=== PATIENT | male | born 1950 | race Caucasian/White ===

== ENCOUNTER 2019-04-13 06:50 | Day surgery (SDC) | payer OTHER ==
[~2019-04-13] VITALS: Ht 175.3 cm; Wt 87.0 kg
[~2019-04-13 06:50] MED LIST: ATOR80 PO; Aspirin325 MG PO; B Complex #11 EACH PO; CENTRUM SILVER1 EAC4 PO; CLOP75 PO; GLIP10 PO; ISOSORBIDE ER PO; Isosorbide Mono60 MG PO; Janumet 50-1,01 EACH PO; METO25ER PO; NITR.4SL SL; PIOG45 PO; Zestril40 MG PO
--- NOTE | 2019-04-13 10:58 | NUR ---
attempted to deflate R TR band, slight oozing noted. Reinflated.NO bleeding or hematoma noted. VSS> nadn. Pt denies needs., call light within reach.
--- NOTE | 2019-04-13 12:45 | NUR ---
PT TR BAND FULLY DEFLATED. NO BLEEDING OR HEMATOMA NOTED. VSS. NADN. PT DENIES NEEDS, WATCHING TV AT THIS TIME. CALL LIGHT WITHIN REACH.
--- NOTE | 2019-04-13 13:15 | NUR ---
PT AMBULATES TO AND FROM RESTROOM WITHOUT DIFF. R RADIAL REMAINS CLEAR. PT DRESSING SELF WITH MINIMAL ASSISTANCE
--- NOTE | 2019-04-13 13:18 | NUR ---
DOT DRESSING APPLIED WITH SPLINT & SLING. TOLERATES WELL. PT VEBALIZES UNDERSTANDING WRITTEN AND VERBAL ORDERS. PT DC TO HOME VIA FRIEND BY SHAZIA.
== END 2019-04-13 13:33 | disposition home or self-care (01) ==
LOC: MHTC 06:50
DX: T82.855A Stenosis of coronary artery stent, initial encounter (principal); I25.10 Atherosclerotic heart disease of native coronary artery without angina pectoris; I10 Essential (primary) hypertension; E78.5 Hyperlipidemia, unspecified; E11.9 Type 2 diabetes mellitus without complications; Z79.02 Long term (current) use of antithrombotics/antiplatelets; Z79.82 Long term (current) use of aspirin; Z79.899 Other long term (current) drug therapy; Z95.5 Presence of coronary angioplasty implant and graft; Z79.84 Long term (current) use of oral hypoglycemic drugs
CPT/HCPCS: 82947; 93458; 93571; 99152; 99153; C1769; C1887; C1894; J1644; J7030; Q9967

== ENCOUNTER 2019-07-01 06:56 | Day surgery (SDC) | payer OTHER ==
[~2019-07-01] VITALS: Ht 172.7 cm; Wt 82.8 kg
[2019-07-01] MEDS ORDERED: Janumet 50-1,01 EACH (07:36)
== END 2019-07-01 08:52 | disposition home or self-care (01) ==
LOC: ORSCSDS 06:56
PROVIDERS: Surgery
PROC: 0DJD8ZZ Inspection of Lower Intestinal Tract, Via Natural or Artificial Opening Endoscopic (ICD-10-PCS; principal; 2019-07-01 08:00)
DX: Z12.11 Encounter for screening for malignant neoplasm of colon (principal); Z86.010 Personal history of colon polyps; E11.9 Type 2 diabetes mellitus without complications; I25.10 Atherosclerotic heart disease of native coronary artery without angina pectoris; I10 Essential (primary) hypertension; E78.5 Hyperlipidemia, unspecified; I25.2 Old myocardial infarction; Z79.899 Other long term (current) drug therapy; Z79.82 Long term (current) use of aspirin
CPT/HCPCS: 82947; J0330; J0461; J1644; J2250; J2405; J2704; J3010; J7120

== ENCOUNTER → 2019-10-09 | Outpatient (CLI) | payer OTHER ==
[~2019-10-09] MED LIST changes: +Janumet 50-1,01 EACH; +PIOG15 PO; +TORSE20 PO
== END | disposition home or self-care (01) ==
LOC: LAB SHORT 09:45 → LAB 09:45 → LAB FUT 09-29 18:30
DX: R13.10 Dysphagia, unspecified (principal)
CPT/HCPCS: 87338

== ENCOUNTER 2019-12-14 10:30 | Day surgery (SDC) | payer OTHER ==
[~2019-12-14] VITALS: Ht 172.7 cm; Wt 78.9 kg
[~2019-12-14 10:30] MED LIST changes: +Actos45 MG PO; +ESCI10 PO; +GLIP10ER PO; +LISI5 PO; +OMEPRAZOLE20 MG PO
[2019-12-14] MEDS ORDERED: METF500 PO (11:03)
[2019-12-14] MEDS ORDERED: METO25ER (11:03)
== END 2019-12-14 12:10 | disposition home or self-care (01) ==
LOC: ORSCSDS 10:30
PROVIDERS: Internal Medicine Gastroenterology
PROC: 0D757ZZ Dilation of Esophagus, Via Natural or Artificial Opening (ICD-10-PCS; principal; 2019-12-14 14:00)
PROC: 0DB38ZX Excision of Lower Esophagus, Via Natural or Artificial Opening Endoscopic, Diagnostic (ICD-10-PCS; principal; 2019-12-14 14:00)
PROC: 0DB68ZX Excision of Stomach, Via Natural or Artificial Opening Endoscopic, Diagnostic (ICD-10-PCS; principal; 2019-12-14 14:00)
PROC: 0DB98ZX Excision of Duodenum, Via Natural or Artificial Opening Endoscopic, Diagnostic (ICD-10-PCS; principal; 2019-12-14 14:00)
PROC: 0DB18ZX Excision of Upper Esophagus, Via Natural or Artificial Opening Endoscopic, Diagnostic (ICD-10-PCS; principal; 2019-12-14 14:00)
DX: R11.2 Nausea with vomiting, unspecified (principal); E11.9 Type 2 diabetes mellitus without complications; I25.10 Atherosclerotic heart disease of native coronary artery without angina pectoris; R13.10 Dysphagia, unspecified; Z79.84 Long term (current) use of oral hypoglycemic drugs; Z79.899 Other long term (current) drug therapy
CPT/HCPCS: 82947; 88305; 88342; J2704; J7120

== ENCOUNTER 2019-12-20 08:15 | Day surgery (SDC) | payer OTHER ==
[~2019-12-20] VITALS: Ht 172.7 cm; Wt 78.9 kg
[~2019-12-20 08:15] MED LIST changes: +METF500 PO; +METO25ER
[2019-12-20] MEDS ORDERED: LISI20 PO (08:30)
--- NOTE | 2019-12-20 08:39 | NUR ---
History, Chart, Medications and Allergies reviewed before start of procedure. Patient confirms NPO status and agrees with scheduled surgery.
[2019-12-20] MEDS ORDERED: IBUP800 PO (08:52)
[2019-12-20] MEDS ORDERED: CYAN500 PO (08:53)
--- NOTE | 2019-12-20 11:12 | NUR ---
NOZIN NASAL OUTSIDE REPAIRER SPECIAL X3 AMPULES USED TO NARES BILAT PER ORDER.
--- NOTE | 2019-12-20 11:13 | NUR ---
KNEE HIGH BREE HOSE WITH CALF PAS APPLIED TO RLE.
--- NOTE | 2019-12-20 15:20 | NUR ---
pt transported to room via own bed, a/o x 4, pleasant/cooperative, no sensation/movement ble r/t spinal anesthesia. pt denies pain, denies n/v, provided with PO fluids/snack. pt oriented to call [facility], [facility]
--- NOTE | 2019-12-20 17:47 | NUR ---
pt remains a/o x 4, pleasant/cooperative, denies pain, still has some numbness in BLE, is able to wiggle toes minimally, good capillary refill to toes, strong pedal pulses. pt denies n/v, tolerating PO intake.
--- NOTE | 2019-12-20 18:03 | NUR ---
DR KRAMER ROUNDING ON PT
--- NOTE | 2019-12-20 20:38 | NUR ---
CBG 403. HOSPITALIST CONSULTED FOR DIABETES MANAGEMENT. SPOKE WITH DR. WHITEHEAD REGARDING ELEVATED BLOOD SUGAR. NO VERBAL ORDERS AT THIS TIME. HOSPITALIST IN TO SEE PATIENT.
--- NOTE | 2019-12-21 01:34 | NUR ---
ASSUMED CARE FROM MARIAJOSE EDMONDSON. REPORT RECEIVED. PATIENT IS RESTING IN BED WITH EYES CLOSED. CALL LIGHT IN REACH. WILL MONITOR PATIENT FOR ANY NEEDS.
--- NOTE | 2019-12-21 04:27 | NUR ---
SHIFT SUMMARY NO CHANGES SINCE RECEIVING HAND OFF. PATIENT RESTING IN BED, DENIES PAIN AND NAUSEA. PATIENT HAS VOIDED. UP TO RESTROOM WITH FWW, GB. [id number]. VSS. CBG ELEVATED AT NIGHTTIME CHECKS. NEW ORDERS FOR LANTUS GIVEN. PATIENT CALLING APPROPRIATLY
[2019-12-21 04:53] LABS: BASOPHILS ABSOLUTE AUTO 0.01 K/mm3 (0.00-0.23); BASOPHILS PERCENT AUTO 0 % (0-2); EOSINOPHILS PERCENT AUTO 0 % (0-6); Hematocrit 29.1 % (37.0-53.0); Hemoglobin 9.4 g/dL (13.5-17.5); IMMATURE GRAN ABSOLUTE AUTO 0.04 K/mm3 (0.00-0.10); IMMATURE GRAN PERCENT AUTO 0 % (0-1); LYMPHOCYTES ABSOLUTE AUTO 1.16 K/mm3 (0.84-5.20); LYMPHOCYTES PERCENT AUTO 10 % (21-46); MONOCYTES ABSOLUTE AUTO 0.56 K/mm3 (0.16-1.47); MONOCYTES PERCENT AUTO 5 % (4-13); Mean Corpuscular HGB 30.9 pg (26.0-34.0); Mean Corpuscular HGB Conc 32.3 g/dL (31.5-36.5); Mean Corpuscular Volume 96 fL (80-100); Mean Platelet Volume 12.9 fL (9.1-12.4); NEUTROPHILS PERCENT AUTO 85 % (41-73); Platelet Count 239 K/mm3 (150-400); RDW Coefficient Variation 12.9 % (11.7-14.2); RDW Standard Deviation 44.9 fL (35.1-46.3); Red Blood Cell Count 3.04 M/mm3 (4.30-5.90); White Blood Cell Count 11.87 K/mm3 (4.00-11.30)
[2019-12-21 05:13] LABS: Anion Gap 9 mmol/L (6-16); Blood Urea Nitrogen 25 mg/dL (8-24); Bun/Creatinine Ratio 20.3 (12.0-20.0); CO2, Blood 22 mmol/L (21-32); Chloride, Blood 106 mmol/L (98-108); Creatinine, Blood 1.23 mg/dL (0.60-1.20); Glomerular Filtration Rate >60 (60-); Glucose, Blood 289 mg/dL (70-99); Magnesium, Blood 1.6 mg/dL (1.6-2.4); Potassium, Blood 4.5 mmol/L (3.5-5.5); Sodium, Blood 137 mmol/L (136-145)
--- NOTE | 2019-12-21 09:47 | NUR ---
12/21/19 0947 Loida Whatley VERIFICATIONS: EDIT CHART.
--- NOTE | 2019-12-21 11:14 | NUR ---
Upon receiving an admit referral, I visit the patient. Patient openly shares about his recent surgery, his family, his muslim and his move to [facility]. I listen empathically and provide companionship and prayer. Patient responds well and voices appreciation for the visit.
--- NOTE | 2019-12-21 13:21 | NUR ---
PERMISSION FOR CARE I, RICCO HOLGUIN [facility] [employer], RECIEVED PERMISSION FROM THIS PATIENT ON 12/21/2019 TO CARE FOR HIM ON 12/21/2019.
--- NOTE | 2019-12-21 18:18 | NUR ---
SHIFT SUMMARY PT FINALLY MAKING PROGRESS ON BLOOD SUGARS. CLEARED FROM THERAPY AND IS SAFE FOR D/C HOME ONCE BLOOD SUGARS ARE CONTROLLED. PT HOPEFUL TO DC TOMORROW AM. PAIN WELL CONTROLLED, TOLERATING DIET, VOIDING WELL.
[2019-12-22 04:49] LABS: BASOPHILS ABSOLUTE AUTO 0.05 K/mm3 (0.00-0.23); BASOPHILS PERCENT AUTO 0 % (0-2); EOSINOPHILS ABSOLUTE AUTO 0.44 K/mm3 (0.00-0.68); EOSINOPHILS PERCENT AUTO 3 % (0-6); Hematocrit 28.2 % (37.0-53.0); IMMATURE GRAN ABSOLUTE AUTO 0.07 K/mm3 (0.00-0.10); IMMATURE GRAN PERCENT AUTO 1 % (0-1); LYMPHOCYTES ABSOLUTE AUTO 3.44 K/mm3 (0.84-5.20); LYMPHOCYTES PERCENT AUTO 25 % (21-46); MONOCYTES ABSOLUTE AUTO 0.92 K/mm3 (0.16-1.47); MONOCYTES PERCENT AUTO 7 % (4-13); Mean Corpuscular HGB 30.7 pg (26.0-34.0); Mean Corpuscular HGB Conc 31.9 g/dL (31.5-36.5); Mean Corpuscular Volume 96 fL (80-100); Mean Platelet Volume 12.5 fL (9.1-12.4); NEUTROPHILS ABSOLUTE AUTO 8.72 K/mm3 (1.96-9.15); NEUTROPHILS PERCENT AUTO 64 % (41-73); Platelet Count 240 K/mm3 (150-400); RDW Coefficient Variation 13.1 % (11.7-14.2); RDW Standard Deviation 46.3 fL (35.1-46.3); Red Blood Cell Count 2.93 M/mm3 (4.30-5.90); White Blood Cell Count 13.64 K/mm3 (4.00-11.30)
--- NOTE | 2019-12-22 04:55 | NUR ---
SHIFT SUMMARY HAS RESTED WELL AFTER AMBULATING IN THE ROOM AND USING THE BATHROOM. GOOD URINE OUTPUT NOTED. PAIN HAS BEEN WELL MANAGED WITH TORADOL AND TYLENOL. DENIES FURTHER NEEDS OR WANTS AT THIS TIME. SAFETY MEAURES IN PLACE. WILL GIVE HAND OFF TO ONCOMING SHIFT USING SBAR.
[2019-12-22 05:07] LABS: Bun/Creatinine Ratio 24.1 (12.0-20.0); Creatinine, Blood 1.33 mg/dL (0.60-1.20)
[2019-12-22] MEDS ORDERED: BASAGLAR K100 UNIT/1 SC (10:39)
[2019-12-22] MEDS ORDERED: OXYC5 PO (10:42)
--- NOTE | 2019-12-22 11:11 | NUR ---
discharge instructions reviewed with patient and patients questions answered. pt waiting for daughter in law to arrive to take him home
--- NOTE | 2019-12-22 15:05 | NUR ---
DISCHARGED TO HOME
== END 2019-12-22 15:05 | disposition home or self-care (01) ==
LOC: SURS 08:15 → ORSCMMR 08:15 → ORD 11:15 → SURS 15:16 → ORSCMMR 12-22 15:05
PROVIDERS: Family Medicine; Orthopaedic Surgery
PROC: 0SRD0J9 Replacement of Left Knee Joint with Synthetic Substitute, Cemented, Open Approach (ICD-10-PCS; principal; 2019-12-20 11:15)
DX: M17.12 Unilateral primary osteoarthritis, left knee (principal); I12.9 Hypertensive chronic kidney disease with stage 1 through stage 4 chronic kidney disease, or unspecified chronic kidney disease; E11.22 Type 2 diabetes mellitus with diabetic chronic kidney disease; N18.9 Chronic kidney disease, unspecified; I25.10 Atherosclerotic heart disease of native coronary artery without angina pectoris; Z79.899 Other long term (current) drug therapy
CPT/HCPCS: 36415; 73560-LT; 80048; 82947; 83036; 83735; 85025; 88300; 97110; 97116; 97162; C1713; C1776; J0171; J0690; J0735; J1100; J1815; J1885; J2250; J2405; J2704; J2795; J7120

== ENCOUNTER → 2021-05-09 | Outpatient (CLI) | payer OTHER ==
[~2021-05-09] MED LIST changes: +ASPI81CH PO; +BASAGLAR K100 UNIT/1 SC; +BRILINTA90 M1 PO; +CYAN500 PO; +IBUP800 PO; +JARDIANCE25 MG PO; +KETO.5OPSO LEFTEYE; +LISI20 PO; -METO25ER; +OXYC5 PO; +PRED PH-MOXI-BRO5 M1 OP; +REGLAN10 M2 PO
[2021-05-09 13:23] LABS: BASOPHILS ABSOLUTE AUTO 0.06 K/mm3 (0.00-0.23); BASOPHILS PERCENT AUTO 1 % (0-2); EOSINOPHILS ABSOLUTE AUTO 0.35 K/mm3 (0.00-0.68); EOSINOPHILS PERCENT AUTO 3 % (0-6); Hematocrit 35.3 % (37.0-53.0); Hemoglobin 11.2 g/dL (13.5-17.5); IMMATURE GRAN ABSOLUTE AUTO 0.04 K/mm3 (0.00-0.10); IMMATURE GRAN PERCENT AUTO 0 % (0-1); LYMPHOCYTES ABSOLUTE AUTO 5.16 K/mm3 (0.84-5.20); LYMPHOCYTES PERCENT AUTO 50 % (21-46); MONOCYTES ABSOLUTE AUTO 0.72 K/mm3 (0.16-1.47); MONOCYTES PERCENT AUTO 7 % (4-13); Mean Corpuscular HGB 30.8 pg (26.0-34.0); Mean Corpuscular HGB Conc 31.7 g/dL (31.5-36.5); Mean Corpuscular Volume 97 fL (80-100); Mean Platelet Volume 12.3 fL (9.1-12.4); NEUTROPHILS ABSOLUTE AUTO 3.97 K/mm3 (1.96-9.15); NEUTROPHILS PERCENT AUTO 39 % (41-73); Platelet Count 225 K/mm3 (150-400); RDW Coefficient Variation 14.1 % (11.7-14.2); RDW Standard Deviation 49.9 fL (35.1-46.3); Red Blood Cell Count 3.64 M/mm3 (4.30-5.90)
[2021-05-09 13:26] LABS: Hematocrit 35.2 % (37.0-53.0); Hemoglobin 11.1 g/dL (13.5-17.5); Mean Corpuscular HGB 30.7 pg (26.0-34.0); Mean Corpuscular HGB Conc 31.5 g/dL (31.5-36.5); Mean Corpuscular Volume 97 fL (80-100); Mean Platelet Volume 12.4 fL (9.1-12.4); Platelet Count 225 K/mm3 (150-400); RDW Standard Deviation 49.9 fL (35.1-46.3); Red Blood Cell Count 3.62 M/mm3 (4.30-5.90)
[2021-05-09 13:36] LABS: International Normalized Ratio 1.06; Prothrombin Time Results 11.4 Sec (9.7-11.5)
[2021-05-09 14:01] LABS: BASOPHILS PERCENT MAN 0 % (0-2); EOSINOPHILS PERCENT MAN 3 % (0-6); LYMPHOCYTES PERCENT MAN 51 % (21-46); MONOCYTES PERCENT MAN 5 % (4-13); SEG NEUTROPHILS PERCENT MAN 41 % (41-73); TOTAL CELLS COUNTED 100
[2021-05-09 14:16] LABS: Anion Gap 4 mmol/L (6-16); Blood Urea Nitrogen 24 mg/dL (8-24); Bun/Creatinine Ratio 20.9 (12.0-20.0); CO2, Blood 26 mmol/L (21-32); Chloride, Blood 111 mmol/L (98-108); Creatinine, Blood 1.15 mg/dL (0.60-1.20); Glomerular Filtration Rate >60 (60-); Glucose, Blood 205 mg/dL (70-99); Potassium, Blood 4.1 mmol/L (3.5-5.5); Sodium, Blood 141 mmol/L (136-145)
== END | disposition home or self-care (01) ==
LOC: LAB SHORT 11:05 → LAB 11:05
PROVIDERS: Internal Medicine Cardiovascular Disease; Orthopaedic Surgery
DX: Z01.818 Encounter for other preprocedural examination (principal); R07.9 Chest pain, unspecified; E11.9 Type 2 diabetes mellitus without complications
CPT/HCPCS: 36415; 80048; 83036; 85007; 85025; 85027; 85610

== ENCOUNTER 2021-05-10 06:36 | Day surgery (SDC) | payer OTHER ==
[~2021-05-10] VITALS: Ht 172.7 cm; Wt 84.0 kg
[~2021-05-10 06:36] MED LIST changes: -ASPI81CH PO; -BRILINTA90 M1 PO
[2021-05-10] MEDS ORDERED: ASPI81CH PO (07:03)
--- NOTE | 2021-05-10 09:15 | NUR ---
TO RECOVERY ROOM VIA RECLINER. PT AWAKE AND ALERT. TR BAND INTACT WITH 14 CC AIR. PULSES PRESENT.
--- NOTE | 2021-05-10 09:28 | NUR ---
DR. MONROY HERE TO DISCUSS PROCEDURE PATIENT.
[2021-05-10] MEDS ORDERED: BRILINTA90 M1 PO (09:32)
--- NOTE | 2021-05-10 10:55 | NUR ---
[facility] RETURNED CALL. PT COST OF [place] IS $480/MONTH. PT STATES HE CAN'T AFFORD IT. SPOKE WITH DR. MONROY. TO CONTINUE [place].
[2021-05-10] MEDS ORDERED: CLOP75 PO (10:56)
--- NOTE | 2021-05-10 12:06 | NUR ---
4CC OF AIR RELEASED FROM TR BAND. NO BLEEDING OR HEMATOMA NOTED. VSS. NADN.
--- NOTE | 2021-05-10 12:23 | NUR ---
AIR FULLY DEFLATED FROM TR BAND. TOLERATING WELL. NO BLEEDING OR HEMATOMA NOTED. VSS. NADN. CALL LIGHT WITHIN REACH. PT EATING LUNCH AT THIS TIME
--- NOTE | 2021-05-10 13:08 | NUR ---
HEMATOMA NOTED DISTAL R RADIAL TR BAND. TR BAND REMOVED. NO BLEEDING NOTED. MANUAL PRESSURE HELD TO REDUCE HEMATOMA.
--- NOTE | 2021-05-10 13:11 | NUR ---
NEEL WITH PRESSURE DSG APPLIED TO R WRIST. TOLERATING WELL. YARIEL. SHIRLEY.
--- NOTE | 2021-05-10 13:30 | NUR ---
DISCHARGE INSTRUCTIONS GIVEN WITH VERBAL AND WRITTEN UNDERSTANDING.
--- NOTE | 2021-05-10 13:31 | NUR ---
COBAN AND PRESSURE DSG REMOVED. TOLERATED WELL. NO LONGER HEMATOMA OR BLEEDING NOTED. WILL CONTINUE TO [facility].
--- NOTE | 2021-05-10 13:45 | NUR ---
AMBULATED TO BATHROOM. TOLERATED WELL. DRESSING FOR DISCHARGE.
--- NOTE | 2021-05-10 15:12 | NUR ---
IV REMOVED INTACT. 2X2,COBAN AND MANUAL PRESSURE APPLIED. RIGHT RADIAL SITE SOFT NONTENDER WITH BRUISING.
--- NOTE | 2021-05-10 15:47 | NUR ---
transfer of care given to Juliana Gil RN.
--- NOTE | 2021-05-10 15:51 | NUR ---
PT RIGHT ARM PLACED IN SLING. WAITING FOR RIDE
--- NOTE | 2021-05-10 16:22 | NUR ---
PT SON HERE, PT WHEELED OUT TO PRIVATE VEHICLE WITH ONE STAFF.
== END 2021-05-10 16:20 | disposition home or self-care (01) ==
LOC: MHTC 06:36
DX: I25.118 Atherosclerotic heart disease of native coronary artery with other forms of angina pectoris (principal); E78.5 Hyperlipidemia, unspecified; R00.1 Bradycardia, unspecified; I13.10 Hypertensive heart and chronic kidney disease without heart failure, with stage 1 through stage 4 chronic kidney disease, or unspecified chronic kidney disease; N18.9 Chronic kidney disease, unspecified; T82.855A Stenosis of coronary artery stent, initial encounter; Y84.8 Other medical procedures as the cause of abnormal reaction of the patient, or of later complication, without mention of misadventure at the time of the procedure
CPT/HCPCS: 76937; 85347; 93454; 93571; 93572; 99152; 99153; A9270; C1725; C1769; C1874; C1887; C1894; C9600; J1644; J2250; J3010; J7030; J7040; J7050; Q9967

== ENCOUNTER → 2021-05-28 | Outpatient (CLI) | payer OTHER ==
[~2021-05-28] MED LIST changes: +ASPI81CH PO; +BRILINTA90 M1 PO
== END | disposition home or self-care (01) ==
LOC: LAB SHORT 16:22 → LAB 16:22
DX: T14.8XXA Other injury of unspecified body region, initial encounter (principal)
CPT/HCPCS: 87070; 87075; 87205

== ENCOUNTER 2021-06-14 08:21 | Day surgery (SDC) | payer OTHER ==
[~2021-06-14] VITALS: Ht 172.7 cm; Wt 82.9 kg
--- NOTE | 2021-06-14 08:52 | NUR ---
06/14/21 0852 Larry Ortiz TETRACAINE IN AT [phone] PLEDGET IN AT [phone]
== END 2021-06-14 10:18 | disposition home or self-care (01) ==
LOC: ORSCSDS 08:21
PROVIDERS: Ophthalmology
PROC: 08RK3JZ Replacement of Left Lens with Synthetic Substitute, Percutaneous Approach (ICD-10-PCS; principal; 2021-06-14 09:45)
DX: H25.12 Age-related nuclear cataract, left eye (principal); I10 Essential (primary) hypertension; I25.10 Atherosclerotic heart disease of native coronary artery without angina pectoris; N18.9 Chronic kidney disease, unspecified; E78.5 Hyperlipidemia, unspecified; I50.9 Heart failure, unspecified; Z79.02 Long term (current) use of antithrombotics/antiplatelets; Z79.899 Other long term (current) drug therapy
CPT/HCPCS: 82947; J2001; J2250; J3010; J3301; J7040; V2632

== ENCOUNTER 2021-09-17 15:18 | Observation (INO) | payer OTHER ==
[~2021-09-17] VITALS: Ht 172.7 cm; Wt 89.1 kg
[~2021-09-17 15:18] MED LIST changes: -ASPI81CH PO; +Aspir 8181 MG PO
[2021-09-17 16:01] LABS: BASOPHILS ABSOLUTE AUTO 0.04 K/mm3 (0.00-0.23); BASOPHILS PERCENT AUTO 0 % (0-2); EOSINOPHILS ABSOLUTE AUTO 0.27 K/mm3 (0.00-0.68); EOSINOPHILS PERCENT AUTO 3 % (0-6); Hematocrit 30.4 % (37.0-53.0); Hemoglobin 9.9 g/dL (13.5-17.5); IMMATURE GRAN ABSOLUTE AUTO 0.02 K/mm3 (0.00-0.10); IMMATURE GRAN PERCENT AUTO 0 % (0-1); LYMPHOCYTES ABSOLUTE AUTO 4.47 K/mm3 (0.84-5.20); LYMPHOCYTES PERCENT AUTO 49 % (21-46); MONOCYTES ABSOLUTE AUTO 0.67 K/mm3 (0.16-1.47); MONOCYTES PERCENT AUTO 7 % (4-13); Mean Corpuscular HGB 32.8 pg (26.0-34.0); Mean Corpuscular HGB Conc 32.6 g/dL (31.5-36.5); Mean Corpuscular Volume 101 fL (80-100); Mean Platelet Volume 11.9 fL (9.1-12.4); NEUTROPHILS ABSOLUTE AUTO 3.71 K/mm3 (1.96-9.15); NEUTROPHILS PERCENT AUTO 41 % (41-73); Platelet Count 224 K/mm3 (150-400); RDW Coefficient Variation 15.5 % (11.7-14.2); RDW Standard Deviation 55.5 fL (35.1-46.3); Red Blood Cell Count 3.02 M/mm3 (4.30-5.90); White Blood Cell Count 9.18 K/mm3 (4.00-11.30)
[2021-09-17 16:31] LABS: Alanine Aminotransfer (ALT/SGP 16 U/L (12-78); Albumin, Blood 3.3 g/dL (3.4-5.0); Albumin/Globulin Ratio 0.9 (0.8-1.8); Alk Phos 74 U/L (50-136); Anion Gap 6 mmol/L (6-16); Aspartate Aminotrans (AST/SGOT 18 U/L (12-37); Bilirubin, Total 0.4 mg/dL (0.1-1.0); Blood Urea Nitrogen 34 mg/dL (8-24); CO2, Blood 25 mmol/L (21-32); Calcium, Blood 8.8 mg/dL (8.5-10.1); Chloride, Blood 106 mmol/L (98-108); Creatinine, Blood 1.26 mg/dL (0.60-1.20); Globulin, Blood 3.7 g/dL (2.2-4.0); Glomerular Filtration Rate 56 (60-); Glucose, Blood 220 mg/dL (70-99); Sodium, Blood 137 mmol/L (136-145)
[2021-09-17 16:39] LABS: Troponin I <0.015 ng/mL (0.000-0.040)
[2021-09-17] MEDS ORDERED: PIOGLITAZONE HC45 MG PO (18:28)
[2021-09-17] MEDS ORDERED: METFORMIN HCL500 M3 PO (18:28)
[2021-09-17] MEDS ORDERED: PLAVIX75 MG PO (18:28)
[2021-09-17 19:04] LABS: International Normalized Ratio 1.06; Prothrombin Time Results 11.1 Sec (9.7-11.5)
[2021-09-18 03:38] LABS: BASOPHILS ABSOLUTE AUTO 0.05 K/mm3 (0.00-0.23); BASOPHILS PERCENT AUTO 1 % (0-2); EOSINOPHILS ABSOLUTE AUTO 0.42 K/mm3 (0.00-0.68); EOSINOPHILS PERCENT AUTO 5 % (0-6); Hematocrit 30.2 % (37.0-53.0); Hemoglobin 9.9 g/dL (13.5-17.5); IMMATURE GRAN ABSOLUTE AUTO 0.04 K/mm3 (0.00-0.10); IMMATURE GRAN PERCENT AUTO 1 % (0-1); LYMPHOCYTES ABSOLUTE AUTO 4.13 K/mm3 (0.84-5.20); LYMPHOCYTES PERCENT AUTO 50 % (21-46); MONOCYTES PERCENT AUTO 9 % (4-13); Mean Corpuscular HGB 32.9 pg (26.0-34.0); Mean Corpuscular HGB Conc 32.8 g/dL (31.5-36.5); Mean Corpuscular Volume 100 fL (80-100); Mean Platelet Volume 12.2 fL (9.1-12.4); NEUTROPHILS ABSOLUTE AUTO 2.89 K/mm3 (1.96-9.15); NEUTROPHILS PERCENT AUTO 35 % (41-73); Platelet Count 214 K/mm3 (150-400); RDW Coefficient Variation 15.5 % (11.7-14.2); RDW Standard Deviation 55.8 fL (35.1-46.3); Red Blood Cell Count 3.01 M/mm3 (4.30-5.90); White Blood Cell Count 8.23 K/mm3 (4.00-11.30)
[2021-09-18 03:59] LABS: Anion Gap 6 mmol/L (6-16); Blood Urea Nitrogen 27 mg/dL (8-24); CHOL/HDL RATIO 2.8; CO2, Blood 24 mmol/L (21-32); Calcium, Blood 8.5 mg/dL (8.5-10.1); Chloride, Blood 110 mmol/L (98-108); Cholesterol 122 mg/dL (50-200); Creatinine, Blood 1.08 mg/dL (0.60-1.20); Glomerular Filtration Rate >60 (60-); Glucose, Blood 172 mg/dL (70-99); HDL Cholesterol 43 mg/dL (>39); LDL/HDL RATIO 1.4; Low Density Lipoprotein Chol 62 mg/dL (0-110); Potassium, Blood 3.9 mmol/L (3.5-5.5); Sodium, Blood 140 mmol/L (136-145); Triglycerides 85 mg/dL (30-160); Very Low Density Lipoprot Chol 17 mg/dL (6-32)
--- NOTE | 2021-09-18 13:52 | NUR ---
SUMMARY/DISCHARGE PT DISCHARGED TO HOME, PT VERBALIZED UNDERSTANDING OF DISCHARGE INSTRUCTIONS REGARDING MEDS AND FOLLOW UP, PT TAKEN OUT SAFELY VIA WHEELCHAIR
== END 2021-09-18 13:47 | disposition home or self-care (01) ==
LOC: ER 15:18 → MEDS 15:19
PROVIDERS: Emergency Medicine; Physician Assistant; ADMIT Internal Medicine
DX: R07.89 Other chest pain (principal); I25.10 Atherosclerotic heart disease of native coronary artery without angina pectoris; E78.5 Hyperlipidemia, unspecified; I12.9 Hypertensive chronic kidney disease with stage 1 through stage 4 chronic kidney disease, or unspecified chronic kidney disease; E11.22 Type 2 diabetes mellitus with diabetic chronic kidney disease; N18.9 Chronic kidney disease, unspecified; K21.9 Gastro-esophageal reflux disease without esophagitis; I25.2 Old myocardial infarction; F32.A Depression, unspecified; Z95.5 Presence of coronary angioplasty implant and graft; Z96.652 Presence of left artificial knee joint; Z79.82 Long term (current) use of aspirin; Z79.02 Long term (current) use of antithrombotics/antiplatelets
CPT/HCPCS: 36415; 71046; 71260; 80048; 80053; 80061; 82947; 84484; 85025; 85379; 85610; 85730; 93005; 93010; 96374; 96375; 96376; 99285-25; A9270; G0378; J1644; J1885; J2270; J7030; Q9967

== ENCOUNTER 2023-09-29 07:24 | Day surgery (SDC) | payer OTHER ==
[2023-09-29] VITALS (9 sets, daily range): BP systolic 118–128; BP diastolic 58–78
[~2023-09-29] VITALS: Ht 172.7 cm; Wt 92.0 kg
[~2023-09-29 07:24] MED LIST changes: +ESCI10; +EUTHYROX25 MC1 PO; +Isosorbide Mono30 MG PO; +METFORMIN HCL500 M3 PO; +METO50ER PO; +METTREX2.5 PO; +ONDA4 PO; +PIOG30 PO; +PIOGLITAZONE HC45 MG PO; +PLAVIX75 MG PO; +Primidone50 MG PO; +SEMGLEE (Y100 UNIT/2 SQ; +TRADJENTA5 MG PO
--- NOTE | 2023-09-29 09:01 | NUR ---
PATIENT RETURNED FROM THE ACCOUNT SUPPORT REP VIA RECLINER, PLACED ON THE MONITOR AND CALL LIGHT IN REACH. VVS. TR BAND IN PLACE WITH 14 ML OF AIR IN THE BAND. RIGHT RADIAL SITE WITHOUT HEMATOMA, NO BLEEDING. RECLINED BACK, NO PAIN NOTED FROM THE PATIENT.
--- NOTE | 2023-09-29 10:44 | NUR ---
2cc REMOVED FROM TR BAND. NO BLEEDING NOTED. SITE SOFT AND NON-TENDER PER PT.
--- NOTE | 2023-09-29 10:53 | NUR ---
2cc REMOVED FROM TR BAND. SITE SOFT AND NON-TENDER. NO BLEEDING NOTED.
--- NOTE | 2023-09-29 11:07 | NUR ---
2cc REMOVED FROM TR BAND. SITE SOFT AND NON-TENDER. NO BLEEDING NOTED.
--- NOTE | 2023-09-29 11:13 | NUR ---
2cc REMOVED FROM TR BAND. NO BLEEDING NOTED. SITE SOFT AND NON-TENDER PER PT.
--- NOTE | 2023-09-29 11:19 | NUR ---
TR BAND FULLY DEFLATED. NO BLEEDING. SITE SOFT AND NON-TENDER.
--- NOTE | 2023-09-29 12:19 | NUR ---
PIV REMOVED. CATH TIP INTACT. PRESSURE DRESSING APPLIED. VSS PATIENT UP OFF THE MONITOR AND DRESSED. REVEIWED DISCHARGE INSTRUCTIONS AND ALL QUESTIONS ANSWERED. PATIENT TR BAND OFF AND RIGHT RADIAL SITE CLEANED AND CLOTH DOT PLACED. PATIENT CALLED DRIVEER AND THEY WILL BE AN HOUR BEFORE THEY ARRIVE. PATIENT IS WAITING IN RECLINER BUT OFF MONITOR ADN FULLY DRESSED WAITING FOR RELIABILITY TECHNICIANS.
== END 2023-09-29 13:00 | disposition home or self-care (01) ==
LOC: MHTC 07:24
DX: I25.118 Atherosclerotic heart disease of native coronary artery with other forms of angina pectoris (principal); I12.9 Hypertensive chronic kidney disease with stage 1 through stage 4 chronic kidney disease, or unspecified chronic kidney disease; N18.9 Chronic kidney disease, unspecified; E78.5 Hyperlipidemia, unspecified; Z79.02 Long term (current) use of antithrombotics/antiplatelets; Z79.82 Long term (current) use of aspirin; Z79.84 Long term (current) use of oral hypoglycemic drugs; Z79.899 Other long term (current) drug therapy
CPT/HCPCS: 76937; 85347; 93454; 93571; 99152; 99153; C1769; C1887; C1894; J1644; J2250; J3010; J7030; J7050; Q9967

== ENCOUNTER → 2023-10-10 | Outpatient (CLI) | payer OTHER ==
[2023-10-10 15:33] LABS: Source, Urine Clean Catch
[2023-10-10 17:23] LABS: Appearance, Urine Clear (Clear); Bilirubin, Urine Neg (Neg); Blood, Urine 1+ (Neg); Glucose Qualitative, Urine 4+ (Neg); Ketones, Urine Neg (Neg); Leukocyte Esterase, Urine Neg (Neg); Nitrite, Urine Neg (Neg); Protein, Urine Neg (Neg); Specific Gravity, Urine 1.015 (1.003-1.022); Urobilinogen, Urine NORM (Normal)
[2023-10-10 17:37] LABS: Color, Urine Pale Yellow (P-Yellow)
[2023-10-10 17:41] LABS: Bacteria Rare /hpf; Red Blood Cells, Urine 0-2 /hpf (0-2); Squamous Epithelial Cells Rare /hpf (Few); White Blood Cells, Urine 0-2 /hpf (0-5)
== END ==
LOC: LAB 15:31 → LAB SHORT 15:31
PROVIDERS: Internal Medicine
DX: R39.15 Urgency of urination (principal)
CPT/HCPCS: 81001

== ENCOUNTER 2024-12-27 09:11 | Day surgery (SDC) | payer OTHER ==
[~2024-12-27] VITALS: Ht 172.7 cm; Wt 88.4 kg
[2024-12-27] VITALS (15 sets, daily range): BP systolic 151–171; BP diastolic 65–87
[~2024-12-27 09:11] MED LIST changes: +Acetaminophen 500 MG Tab PO SCH; +CeFAZolin Sodium 2,000 MG in NS 100 ML IV SCH; +Chlorhexidine Mouth Care 15 ML UDC MT SCH; -ESCI10; +Lactated Ringer's 1,000 ML IV SCH; +OxyCODONE HCL 10 MG TABCR PO SCH; +Ropivacaine 0.5% HCl/Pf 123.125 MG,EPINEPHrine HCL 0.25 MG,Ketorolac Tromethamine 15 MG... INFIL SCH; +Tranexamic Acid 1,000 MG in NS 100 ML IV SCH
[2024-12-27] MEDS ORDERED: INSULIN AS100 UNIT/8 SC (09:39)
[2024-12-27] MEDS ORDERED: REGLAN1013 PO (09:44)
[2024-12-27] MEDS ORDERED: Ketorolac Tromethamine 30mg Vial ONE (10:43)
[2024-12-27] MEDS ORDERED: FentaNYL Citrate 50 MCG/ML 2 ML Injection ONE (10:44)
[2024-12-27] MEDS ORDERED: Dexamethasone Sod Phos 10 MG/ML 1ML VIAL ONE (10:44)
[2024-12-27] MEDS ORDERED: Ondansetron HCl 2 MG / ML 2ML Vial ONE (10:44)
[2024-12-27] MEDS ORDERED: Ondansetron HCl 2 MG / ML 2ML Vial IV ONE (11:20)
[2024-12-27] MEDS ORDERED: Metoclopramide HCl 5MG / ML 2ML Vial IV ONE (11:20)
[2024-12-27] MEDS ORDERED: Bisacodyl 10 MG Supp PR PRN (11:30)
[2024-12-27] MEDS ORDERED: OxyCODONE HCL 5 MG TAB PO PRN ×2 (11:30)
[2024-12-27] MEDS ORDERED: Promethazine HCl 25 MG Tab PO PRN (11:30)
[2024-12-27] MEDS ORDERED: Ondansetron HCl 2 MG / ML 2ML Vial IV PRN (11:30)
[2024-12-27] MEDS ORDERED: HYDROmorphone HCl/Pf 1MG SYR IV PRN (11:35)
[2024-12-27] MEDS ORDERED: Metoclopramide HCl 5MG / ML 2ML Vial IV PRN (11:35)
[2024-12-27] MEDS ORDERED: Bupivacaine 0.5% Inj 10 ML Vial ONE (11:35)
[2024-12-27] MEDS ORDERED: FLU VACC TS2024-25(6MOS UP)/PF 45 MCG/0.5 ML SYRINGE IM SCH (11:35)
[2024-12-27] MEDS ORDERED: DiphenhydrAMINE HCL 25 MG Cap PO PRN (11:35)
[2024-12-27] MEDS ORDERED: propofoL 50 ML IV ONE (11:35)
[2024-12-27] MEDS ORDERED: Magnesium Hydroxide Conc 10 ML UDC PO PRN (11:35)
--- NOTE | 2024-12-27 11:39 | NUR ---
PATIENT REPORTS DENTURES LEFT AT HOME. GLASSES BROUGHT TO PACU FOR SAFE KEEPING DURING SURGERY.
[2024-12-27] MEDS ORDERED: Lactated Ringer's 1,000 ML IV SCH (11:40)
[2024-12-27] MEDS ORDERED: Ketorolac Tromethamine 15mg Vial IV SCH (12:00)
[2024-12-27] MEDS ORDERED: Esmolol HCL 10 MG/ML 10ML VIAL ONE (12:08)
[2024-12-27] MEDS ORDERED: ePHEDrine Sulfate 50 MG/ML 1ML Injection ONE (12:34)
[2024-12-27] MEDS ORDERED: Acetaminophen 500 MG Tab PO SCH (16:00)
[2024-12-27] MEDS ORDERED: Nitroglycerin 0.4 MG SUBL SL PRN (16:35)
[2024-12-27] MEDS ORDERED: Primidone 50 MG Tab PO PRN (16:40)
[2024-12-27] MEDS ORDERED: MetFORMIN HCl 500 mg PO SCH (17:00)
--- NOTE | 2024-12-27 19:13 | NUR ---
SHIFT SUMMARY PT IS POD0 FOR R TKA. PT IS ALERT AND RESPONSIVE, FOLLOWING COMMANDS. 1 ASST W/ FWW AND GB TO BR. PT TOLERATING REG DIET, PO FLUIDS, AND VOIDING APPROPRIATELY. DRESSING TO R KNEE C/D/I, CAP REFILL IN R TOES 2 SECS, PT HAS FULL SENSATION BACK. PAS, BREE HOSE, POLAR PACK IN PLACE. PT CURRENTLY RESTING IN RECLINER W/ LEGS ELEVATED. VSS, PT HTN AT BASELINE. NOTIFIED DR. KRAMER OF HYPERGLYCEMIA, DR. KRAMER PUT IN ORDERS FOR INSULIN AND ACHS CBG CHECKS. CALL LIGHT IN REACH.
[2024-12-27] MEDS ORDERED: CeFAZolin Sodium 2,000 MG in NS 100 ML IV SCH (20:00)
--- NOTE | 2024-12-27 20:33 | NUR ---
CBG: PT HS CBG 397. DR KRAMER NOTIFIED SS COVERAGE REV W/. PLAN TRO MEDICATE PER CURRENT SS. NO ADDITIONAL ORDERS REC. MARK ANTHONY BILLY NOTIFIED.
[2024-12-27] MEDS ORDERED: Primidone 50 MG Tab PO SCH (21:00)
[2024-12-27] MEDS ORDERED: Docusate Sodium 100 MG Cap PO SCH (21:00)
[2024-12-27] MEDS ORDERED: Insulin Glargine-Yfgn 100 Unit/mL 3 ML SYR SC SCH (21:00)
[2024-12-27] MEDS ORDERED: Insulin Human Lispro 100 Units/ML 3ML Syringe SC SCH (21:00)
[2024-12-27] MEDS ORDERED: Atorvastatin 40 MG Tab PO SCH (21:00)
[2024-12-28 05:00] LABS: BASOPHILS ABSOLUTE AUTO 0.03 K/mm3 (0.00-0.23); BASOPHILS PERCENT AUTO 0 % (0-2); EOSINOPHILS ABSOLUTE AUTO 0.04 K/mm3 (0.00-0.68); EOSINOPHILS PERCENT AUTO 0 % (0-6); Hematocrit 34.9 % (37.0-53.0); Hemoglobin 11.6 g/dL (13.5-17.5); IMMATURE GRAN ABSOLUTE AUTO 0.05 K/mm3 (0.00-0.10); IMMATURE GRAN PERCENT AUTO 0 % (0-1); LYMPHOCYTES ABSOLUTE AUTO 2.73 K/mm3 (0.84-5.20); LYMPHOCYTES PERCENT AUTO 21 % (21-46); MONOCYTES ABSOLUTE AUTO 1.01 K/mm3 (0.16-1.47); MONOCYTES PERCENT AUTO 8 % (4-13); Mean Corpuscular HGB 31.4 pg (26.0-34.0); Mean Corpuscular HGB Conc 33.2 g/dL (31.5-36.5); Mean Corpuscular Volume 94 fL (80-100); Mean Platelet Volume 11.8 fL (9.1-12.4); NEUTROPHILS ABSOLUTE AUTO 9.22 K/mm3 (1.96-9.15); NEUTROPHILS PERCENT AUTO 71 % (41-73); Platelet Count 251 K/mm3 (150-400); RDW Coefficient Variation 12.4 % (11.7-14.2); RDW Standard Deviation 43.1 fL (35.1-46.3); White Blood Cell Count 13.08 K/mm3 (4.00-11.30)
--- NOTE | 2024-12-28 05:12 | NUR ---
SHIFT SUMMARY POD 1 RIGHT TKA. DRESSING CDI. POLAR PACK IN PLACE GABY, ICE REPLACED PRN. HYPERGLYCEMIC EPISODE AT START OF SHIFT, PT ASYMPTOMATIC AND PROVIDER NOTIFIED. MEDICATED PER ORDERS, BLOOD GLUCOSE REDUCED POST INSULIN ADMINISTRATION. PT GABY PO INTAKE, DENIES N/V. TORADOL HELD DUE TO LAB VALUES AND CLINICAL JUDGEMENT, DISCUSSED WITH INFORMATION SECURITY. IS VOIDING. ABLE TO MAKE NEEDS KNOWN. AMB WITH FWW, SBA AND GB. PLEASANT AND COOPERATIVE WITH CARE. ABX INFUSED. PAIN MANAGED PER EMAR. PLAN TO BE UP IN CHAIR FOR BREAKFAST, WORK WITH THERAPY TODAY AND DC HOME. PT CURRENTLY RESTING IN BED, RESPIRATIONS EVEN AND UNLABORED, HAS CALL LIGHT IN REACH. ABLE TO MAKE NEEDS KNOWN. WILL GIVE REPORT TO ONCOMING RN.
[2024-12-28 05:44] VITALS: BP 146/74
[2024-12-28 05:49] LABS: Bun/Creatinine Ratio 19.6 (12.0-20.0); Calcium, Blood 8.6 mg/dL (8.5-10.1); Creatinine, Blood 1.12 mg/dL (0.60-1.20); Magnesium, Blood 2.1 mg/dL (1.6-2.4); Potassium, Blood 4.1 mmol/L (3.5-5.5)
[2024-12-28] MEDS ORDERED: Levothyroxine Sodium 0.025 MG Tab PO SCH (06:00)
[2024-12-28 07:20] VITALS: BP 172/82
[2024-12-28] MEDS ORDERED: Metoprolol Succinate 50 MG TABCR PO SCH (09:00)
[2024-12-28] MEDS ORDERED: Empagliflozin 25 MG TAB PO SCH (09:00)
[2024-12-28] MEDS ORDERED: Aspirin 81 MG Chew PO SCH (09:00)
[2024-12-28] MEDS ORDERED: Clopidogrel Bisulfate 75 MG Tab PO SCH (09:00)
[2024-12-28] MEDS ORDERED: Pioglitazone HCl 15 MG Tab PO SCH (09:00)
[2024-12-28] MEDS ORDERED: Citalopram Hydrobromide 20 MG Tab PO SCH (09:00)
[2024-12-28] MEDS ORDERED: Isosorbide Mononitrate 60 MG TABCR PO SCH (09:00)
[2024-12-28] MEDS ORDERED: Saxagliptin HCl 2.5 MG TABLET PO SCH (09:00)
[2024-12-28] MEDS ORDERED: OXYC5 PO (10:06)
[2024-12-28] MEDS ORDERED: ACET500 PO (10:06)
[2024-12-28 10:55] VITALS: BP 139/75
--- NOTE | 2024-12-28 11:57 | NUR ---
Pt. is awake in a chair and is dressed awaiting discharge whe he welcomed my visit. Pt. was pleasant. Facilitated a life review and considered matters of simran and belief. Pt. displayed evidence of engagement and awareness. Prayed with Pt. Pt. verbalized gratitude for the spiritual carfe visit.
--- NOTE | 2024-12-28 12:20 | NUR ---
DISCHARGE NOTE PT IS ALERT AND RESPONSIVE, FOLLOWING COMMANDS. DRESSING TO R KNEE C/D/I, CAP REFILL IN R TOES 2 SECS, PT DENIES N/T TO BLE. PT IS TOLERATING CONS CARB DIET, PO FLUIDS, VOIDING APPROPRIATELY. PT IS COMFORTABLE W/ PAIN MEDS PER EMAR. DISCHARGE INSTRUCTIONS REVIEWED W/ PT, COPY GIVEN. INSULIN GIVEN PER EMAR BEFORE DISCHARGE, INSTRUCTED TO EAT LUNCH SAE AFTER DISCHARGE. PT TO AUDITING MANAGER PAIN PRESCRIPTION AT [facility]. DC'D VIA TO PRIVATE RIDE HOME IN STABLE CONDITION W/ BELONGINGS AT 1205 BUT HAD TO WAIT FOR RIDE TO GET HERE.
== END 2024-12-28 12:45 | disposition home or self-care (01) ==
LOC: ORSCMMR 09:11 → ORD 10:30 → ORSCMMR 12:30 → ORD 12:30 → SURS 14:10 → ORSCMMR 12-28 12:45 → SURS 12-28 12:45
PROVIDERS: Orthopaedic Surgery
PROC: 8E0Y0CZ Robotic Assisted Procedure of Lower Extremity, Open Approach (ICD-10-PCS; principal; 2024-12-27 10:30)
PROC: 0SRC0JA Replacement of Right Knee Joint with Synthetic Substitute, Uncemented, Open Approach (ICD-10-PCS; principal; 2024-12-27 10:30)
DX: M17.11 Unilateral primary osteoarthritis, right knee (principal); I25.10 Atherosclerotic heart disease of native coronary artery without angina pectoris; E78.5 Hyperlipidemia, unspecified; I25.2 Old myocardial infarction; I12.9 Hypertensive chronic kidney disease with stage 1 through stage 4 chronic kidney disease, or unspecified chronic kidney disease; E11.22 Type 2 diabetes mellitus with diabetic chronic kidney disease; N18.9 Chronic kidney disease, unspecified; Z79.4 Long term (current) use of insulin; Z79.84 Long term (current) use of oral hypoglycemic drugs; Z79.02 Long term (current) use of antithrombotics/antiplatelets; E03.9 Hypothyroidism, unspecified; Z79.82 Long term (current) use of aspirin; K21.9 Gastro-esophageal reflux disease without esophagitis; K31.84 Gastroparesis
CPT/HCPCS: 27447; 0055T; 36415; 73560-RT; 80048; 82947; 83735; 85025; 97110; 97116; 97162; 97530; A9270; C1713; C1776; J0171; J0690; J0735; J1100; J1815; J1885; J2405; J2704; J2765; J2795; J3010; J7120

== ENCOUNTER 2025-01-04 08:26 | Emergency (ER) | payer OTHER ==
[~2025-01-04] VITALS: Ht 172.7 cm; Wt 88.0 kg
[~2025-01-04 08:26] MED LIST changes: +ACET500 PO; -Acetaminophen 500 MG Tab PO SCH; -CeFAZolin Sodium 2,000 MG in NS 100 ML IV SCH; -Chlorhexidine Mouth Care 15 ML UDC MT SCH; +INSULIN AS100 UNIT/8 SC; -Lactated Ringer's 1,000 ML IV SCH; -OxyCODONE HCL 10 MG TABCR PO SCH; +REGLAN1013 PO; -Ropivacaine 0.5% HCl/Pf 123.125 MG,EPINEPHrine HCL 0.25 MG,Ketorolac Tromethamine 15 MG... INFIL SCH; -Tranexamic Acid 1,000 MG in NS 100 ML IV SCH
[2025-01-04] MEDS ORDERED: NS 1,000 ML IV SCH (09:25)
[2025-01-04 09:43] LABS: CORONAVIRUS COVID-19 AG Negative (NEGATIVE); INFLUENZA A AG Negative (NEGATIVE); INFLUENZA B AG Negative (NEGATIVE)
[2025-01-04 09:53] LABS: BASOPHILS ABSOLUTE AUTO 0.08 K/mm3 (0.00-0.23); BASOPHILS PERCENT AUTO 1 % (0-2); EOSINOPHILS ABSOLUTE AUTO 0.43 K/mm3 (0.00-0.68); EOSINOPHILS PERCENT AUTO 4 % (0-6); Hematocrit 33.1 % (37.0-53.0); Hemoglobin 10.9 g/dL (13.5-17.5); IMMATURE GRAN PERCENT AUTO 1 % (0-1); LYMPHOCYTES ABSOLUTE AUTO 2.12 K/mm3 (0.84-5.20); LYMPHOCYTES PERCENT AUTO 17 % (21-46); MONOCYTES PERCENT AUTO 8 % (4-13); Mean Corpuscular HGB 31.3 pg (26.0-34.0); Mean Corpuscular HGB Conc 32.9 g/dL (31.5-36.5); Mean Corpuscular Volume 95 fL (80-100); Mean Platelet Volume 11.5 fL (9.1-12.4); NEUTROPHILS ABSOLUTE AUTO 8.58 K/mm3 (1.96-9.15); NEUTROPHILS PERCENT AUTO 70 % (41-73); Platelet Count 412 K/mm3 (150-400); RDW Standard Deviation 44.5 fL (35.1-46.3); Red Blood Cell Count 3.48 M/mm3 (4.30-5.90); White Blood Cell Count 12.31 K/mm3 (4.00-11.30)
[2025-01-04 10:02] LABS: Albumin, Blood 3.1 g/dL (3.4-5.0); Albumin/Globulin Ratio 0.7 (0.8-1.8); Bilirubin, Total 0.7 mg/dL (0.1-1.0); Bun/Creatinine Ratio 28.1 (12.0-20.0); Calcium, Blood 9.5 mg/dL (8.5-10.1); Creatinine, Blood 1.35 mg/dL (0.60-1.20); Globulin, Blood 4.6 g/dL (2.2-4.0); Potassium, Blood 4.6 mmol/L (3.5-5.5); Total Protein, Blood 7.7 g/dL (6.4-8.2)
[2025-01-04 10:56] LABS: Source, Urine Clean Catch
[2025-01-04 11:09] LABS: Appearance, Urine Clear (Clear); Bilirubin, Urine Neg (Neg); Blood, Urine 2+ (Neg); Color, Urine Yellow (P-Yellow); Glucose Qualitative, Urine 4+ (Neg); Ketones, Urine 2+ (Neg); Leukocyte Esterase, Urine Neg (Neg); Nitrite, Urine Neg (Neg); Protein, Urine 1+ (Neg); Specific Gravity, Urine 1.015 (1.003-1.022); Urobilinogen, Urine NORM (Normal)
[2025-01-04 11:35] LABS: Hyaline Casts 0-2 /lpf (0-2); Mucus Light (0-Heavy); Squamous Epithelial Cells Rare /hpf (Few)
[2025-01-04 11:36] LABS: Bacteria Rare /hpf; White Blood Cells, Urine 0-2 /hpf (0-5)
[2025-01-04 11:45] VITALS: BP 198/95
== END 2025-01-04 12:05 | disposition home or self-care (01) ==
LOC: ER 08:26
PROVIDERS: Student in an Organized Health Care Education/Training Program
DX: E86.0 Dehydration (principal); I11.9 Hypertensive heart disease without heart failure; E11.9 Type 2 diabetes mellitus without complications; I25.10 Atherosclerotic heart disease of native coronary artery without angina pectoris; F32.A Depression, unspecified; Z79.82 Long term (current) use of aspirin; Z79.4 Long term (current) use of insulin; Z79.84 Long term (current) use of oral hypoglycemic drugs; Z79.899 Other long term (current) drug therapy; Z79.890 Hormone replacement therapy; Z96.651 Presence of right artificial knee joint
CPT/HCPCS: 71046; 80053; 81001; 85025; 87428-QW; 93005; 93010; 99285-25; J7030

== ENCOUNTER → 2025-01-25 | Outpatient (CLI) | payer OTHER ==
[2025-01-25 14:24] LABS: BASOPHILS ABSOLUTE AUTO 0.05 K/mm3 (0.00-0.23); BASOPHILS PERCENT AUTO 1 % (0-2); EOSINOPHILS ABSOLUTE AUTO 0.06 K/mm3 (0.00-0.68); EOSINOPHILS PERCENT AUTO 1 % (0-6); Hematocrit 39.4 % (37.0-53.0); Hemoglobin 12.9 g/dL (13.5-17.5); IMMATURE GRAN ABSOLUTE AUTO 0.03 K/mm3 (0.00-0.10); IMMATURE GRAN PERCENT AUTO 0 % (0-1); LYMPHOCYTES ABSOLUTE AUTO 1.59 K/mm3 (0.84-5.20); LYMPHOCYTES PERCENT AUTO 20 % (21-46); MONOCYTES ABSOLUTE AUTO 0.53 K/mm3 (0.16-1.47); MONOCYTES PERCENT AUTO 7 % (4-13); Mean Corpuscular HGB 31.8 pg (26.0-34.0); Mean Corpuscular HGB Conc 32.7 g/dL (31.5-36.5); Mean Corpuscular Volume 97 fL (80-100); Mean Platelet Volume 12.9 fL (9.1-12.4); NEUTROPHILS ABSOLUTE AUTO 5.71 K/mm3 (1.96-9.15); NEUTROPHILS PERCENT AUTO 72 % (41-73); Platelet Count 230 K/mm3 (150-400); RDW Coefficient Variation 14.1 % (11.7-14.2); RDW Standard Deviation 49.8 fL (35.1-46.3); Red Blood Cell Count 4.06 M/mm3 (4.30-5.90); White Blood Cell Count 7.97 K/mm3 (4.00-11.30)
[2025-01-25 16:40] LABS: Thyroid Stimulating Hormone 2.59 uIU/mL (0.360-4.800)
[2025-01-25 16:42] LABS: Albumin, Blood 3.4 g/dL (3.4-5.0); Albumin/Globulin Ratio 0.8 (0.8-1.8); Bilirubin, Total 0.8 mg/dL (0.1-1.0); Bun/Creatinine Ratio 32.3 (12.0-20.0); Calcium, Blood 9.2 mg/dL (8.5-10.1); Creatinine, Blood 1.3 mg/dL (0.60-1.20); Globulin, Blood 4.2 g/dL (2.2-4.0); Potassium, Blood 4.3 mmol/L (3.5-5.5); Total Protein, Blood 7.6 g/dL (6.4-8.2)
[2025-01-26 07:10] LABS: FERRITIN 315 ng/mL (30-400)
[2025-01-26 09:10] LABS: IRON BIND.CAP.(TIBC) 211 ug/dL (250-450); IRON SATURATION 39 % (15-55); IRON, SERUM 82 ug/dL (38-169); UIBC 129 ug/dL (111-343)
== END | disposition home or self-care (01) ==
LOC: LAB SHORT 11:15 → LAB 11:15
PROVIDERS: Internal Medicine
DX: I95.89 Other hypotension (principal); E11.22 Type 2 diabetes mellitus with diabetic chronic kidney disease; N18.9 Chronic kidney disease, unspecified; E11.69 Type 2 diabetes mellitus with other specified complication; D64.9 Anemia, unspecified; M25.569 Pain in unspecified knee; E53.8 Deficiency of other specified B group vitamins; R53.83 Other fatigue
CPT/HCPCS: 80053; 80400; 82533; 82607; 82728; 82746; 83036; 83540; 83550; 84443; 85025; 85651

== ENCOUNTER → 2025-03-17 | Outpatient (CLI) | payer OTHER ==
[2025-03-17 14:38] LABS: Bun/Creatinine Ratio 20.6 (12.0-20.0); Calcium, Blood 9.1 mg/dL (8.5-10.1); Creatinine, Blood 0.92 mg/dL (0.60-1.20); Potassium, Blood 3.9 mmol/L (3.5-5.5)
[2025-03-19 01:17] LABS: FRUCTOSAMINE 357 umol/L (205-285)
== END ==
LOC: LAB SHORT 11:35 → LAB 11:35
PROVIDERS: Internal Medicine
DX: E11.22 Type 2 diabetes mellitus with diabetic chronic kidney disease (principal); E11.69 Type 2 diabetes mellitus with other specified complication; Z79.4 Long term (current) use of insulin
CPT/HCPCS: 80048; 82985